=== PATIENT | male | born 1985 | race Caucasian/White ===

== ENCOUNTER 2018-08-29 21:16 | Observation (INO) | payer SELFPAY ==
[~2018-08-29] VITALS: Ht 172.7 cm; Wt 78.9 kg
[~2018-08-29 21:16] MED LIST: CIPR-214 PO; LOR5/325 PO; SULF-198 PO; TRAM-420 PO
--- NOTE | 2018-08-29 21:20 | ER Report ---
History and Physical Time Seen By MD: 21:20 HPI/ROS CHIEF COMPLAINT: Right upper quadrant abdominal pain, vomiting HISTORY OF PRESENT ILLNESS: 32-year-old male presents with severe severe right upper quadrant abdominal discomfort with vomiting. Patient ate soup shrimp in prior to the onset of symptoms earlier this evening. Patient states his pain started before this. He points to the right upper quadrant and right flank. Patient is [place]ic-speaking only history is obtained through an translator and interpreter. Patient notes no dysuria or hematuria. REVIEW OF SYSTEMS: Respiratory: No cough, no dyspnea. Cardiovascular: No chest pain, no palpitations. Gastrointestinal: As above Musculoskeletal: No back pain. Allergies: Coded Allergies: No Known Drug Allergies (Verified , 08/29/18) Home Meds Active Scripts Hydrocodone Bit/Acetaminophen (HYDROCODON-ACETAMINOPHEN 5-325) 1 Each Tablet, 1 EACH PO Q4-6H PRN for PAIN, #12 TAB Prov:LES OBRIEN DO 08/29/18 Promethazine Hcl (PROMETHAZINE HCL) 25 Mg Tablet, 25 MG PO Q4H PRN for NAUSEA/VOMITING, #14 TAB Prov:LES OBRIEN DO 08/29/18 Reported Medications Hydrocodone Bit/Acetaminophen (NORCO 5-325 TABLET) 1 Each Tablet, 1-2 EACH PO Q6H PRN for PAIN, TAB 08/30/18 Discontinued Scripts Tramadol Hcl (TRAMADOL HCL) 50 Mg Tablet, 50 MG PO Q6H PRN for PAIN, #12 TAB 0 Refills Prov:CECI SPAULDING DO 01/13/18 Sulfamethoxazole/Trimet 800-160 Mg Tab (BACTRIM DS TABLET) 1 Each Tablet, 1 TAB PO Q12H for 7 Days, #14 TAB Prov:CECI SPAULDING DO 01/13/18 Past Medical/Surgical History Perirectal abscess Reviewed Nurses Notes: Yes Old Medical Records Reviewed: Yes Hx Smoking: No Smoking Status: Never Smoker Exposure to Second Hand Smoke?: No Hx Substance Use Disorder: No Constitutional Vital Sign - Last 24 Hours 08/29/18 08/29/18 08/29/18 08/29/18 21:21 21:21 21:31 21:46 Temp 97.7 Pulse 64 59 61 Resp 28 B/P (MAP) 153/79 153/79 (103) Pulse Ox 100 99 100 O2 Delivery Room Air 08/29/18 08/29/18 08/29/18 08/29/18 22:01 22:16 22:31 22:33 Pulse 60 65 69 B/P (MAP) 142/70 (94) Pulse Ox 100 100 99 08/29/18 08/29/18 08/29/18 08/29/18 22:46 23:00 23:15 23:30 Pulse 69 70 79 B/P (MAP) 149/105 (120) 137/95 (109) Pulse Ox 100 100 99 99 08/30/18 08/30/18 08/30/18 00:00 00:30 00:45 Pulse 62 B/P (MAP) 128/90 (103) 131/99 (110) Pulse Ox 99 Physical Exam General Appearance: The patient is alert, has no immediate need for airway protection and no current signs of toxicity. Moderate distress, holding right upper quadrant, slightly pale, skin warm and dry HEENT: Pupils equal and round no injection. TMs normal, oropharynx without redness or exudate Respiratory: Chest is non tender, lungs are clear to auscultation. Cardiac: regular rate and rhythm Gastrointestinal: Abdomen is soft, mild right upper quadrant tenderness, no masses, bowel sounds normal. Musculoskeletal: Neck: Neck is supple and non tender. Extremities have full range of motion and are non tender. Skin: No rashes or lesions. DIFFERENTIAL DIAGNOSIS: After history and physical exam differential diagnosis was considered for abdominal pain including but not limited to appendicitis, cholecystitis, food poisoning, gastroenteritis, viral syndrome gastritis and urinary tract infection. Medical Decision Making Data Points Result Diagram: 08/29/18212608/29/182126 Laboratory Hematology Test 08/29/18 21:20 08/29/18 21:27 Urine Color Yellow Urine Clarity Clear Urine pH 5.0 pH (4.8-9.5) Urine Specific Clifford 1.018 Urine Protein Negative mg/dL (NEGATIVE) Urine Glucose (UA) Negative mg/dL (NEGATIVE) Urine Ketones Negative mg/dL (NEGATIVE) Urine Blood Negative (NEGATIVE) Urine Nitrite Negative (NEGATIVE) Urine Bilirubin Negative (NEGATIVE) Urine Urobilinogen Negative mg/dL (0.2-1.9) Urine Leukocyte Esterase Negative (NEGATIVE) Urine RBC None /HPF (0-2/HPF) Urine WBC <1 /HPF (0-5/HPF) Urine Squamous Epithelial Cells None /LPF (</=FEW) Urine Bacteria Negative /HPF (NONE-FEW) Urine Mucus None /HPF (NONE-FEW) Red Blood Count 5.22 M/uL (4.00-5.60) Mean Corpuscular Volume 94.6 fL (80.0-96.0) Mean Corpuscular Hemoglobin 32.0 pg (26.0-33.0) Mean Corpuscular Hemoglobin Concent 33.8 g/dL (32.0-36.0) Red Cell Distribution Width 12.7 % (11.5-14.5) Mean Platelet Volume 7.8 fL (7.2-11.1) Neutrophils (%) (Auto) 66.6 % (39.4-72.5) Lymphocytes (%) (Auto) 24.9 % (17.6-49.6) Monocytes (%) (Auto) 6.6 % (4.1-12.4) Eosinophils (%) (Auto) 1.1 % (0.4-6.7) Basophils (%) (Auto) 0.8 % (0.3-1.4) Nucleated RBC Relative Count (auto) 0.0 /100WBC Neutrophils # (Auto) 7.5 K/uL (2.0-7.4) Lymphocytes # (Auto) 2.8 K/uL (1.3-3.6) Monocytes # (Auto) 0.7 K/uL (0.3-1.0) Eosinophils # (Auto) 0.1 K/uL (0.0-0.5) Basophils # (Auto) 0.1 K/uL (0.0-0.1) Nucleated RBC Absolute Count (auto) 0.00 K/uL Sodium Level 141 mmol/L (137-145) Potassium Level 3.1 mmol/L (3.5-5.0) Chloride Level 103 mmol/L (98-107) Carbon Dioxide Level 22 mmol/L (22-30) Blood Urea Nitrogen 12 mg/dl (9-21) Creatinine 0.80 mg/dl (0.66-1.25) Glomerular Filtration Rate Calc > 60.0 Random Glucose 143 mg/dl (75-110) Calcium Level 10.0 mg/dl (8.4-10.2) Total Bilirubin 0.6 mg/dl (0.2-1.3) Aspartate Amino Transf (AST/SGOT) 37 U/L (0-35) Alanine Aminotransferase (ALT/SGPT) 17 U/L (0-56) Alkaline Phosphatase 89 U/L (0-126) Total Protein 8.6 g/dl (6.3-8.2) Albumin 5.2 g/dl (3.5-5.0) Amylase Level 111 U/L (0-110) Lipase 101 U/L (23-300) Chemistry Test 08/29/18 21:20 08/29/18 21:27 Urine Color Yellow Urine Clarity Clear Urine pH 5.0 pH (4.8-9.5) Urine Specific Clifford 1.018 Urine Protein Negative mg/dL (NEGATIVE) Urine Glucose (UA) Negative mg/dL (NEGATIVE) Urine Ketones Negative mg/dL (NEGATIVE) Urine Blood Negative (NEGATIVE) Urine Nitrite Negative (NEGATIVE) Urine Bilirubin Negative (NEGATIVE) Urine Urobilinogen Negative mg/dL (0.2-1.9) Urine Leukocyte Esterase Negative (NEGATIVE) Urine RBC None /HPF (0-2/HPF) Urine WBC <1 /HPF (0-5/HPF) Urine Squamous Epithelial Cells None /LPF (</=FEW) Urine Bacteria Negative /HPF (NONE-FEW) Urine Mucus None /HPF (NONE-FEW) White Blood Count 11.3 k/uL (4.5-11.0) Red Blood Count 5.22 M/uL (4.00-5.60) Hemoglobin 16.7 g/dL (14.0-18.0) Hematocrit 49.4 % (42.0-52.0) Mean Corpuscular Volume 94.6 fL (80.0-96.0) Mean Corpuscular Hemoglobin 32.0 pg (26.0-33.0) Mean Corpuscular Hemoglobin Concent 33.8 g/dL (32.0-36.0) Red Cell Distribution Width 12.7 % (11.5-14.5) Platelet Count 326 K/uL (150-450) Mean Platelet Volume 7.8 fL (7.2-11.1) Neutrophils (%) (Auto) 66.6 % (39.4-72.5) Lymphocytes (%) (Auto) 24.9 % (17.6-49.6) Monocytes (%) (Auto) 6.6 % (4.1-12.4) Eosinophils (%) (Auto) 1.1 % (0.4-6.7) Basophils (%) (Auto) 0.8 % (0.3-1.4) Nucleated RBC Relative Count (auto) 0.0 /100WBC Neutrophils # (Auto) 7.5 K/uL (2.0-7.4) Lymphocytes # (Auto) 2.8 K/uL (1.3-3.6) Monocytes # (Auto) 0.7 K/uL (0.3-1.0) Eosinophils # (Auto) 0.1 K/uL (0.0-0.5) Basophils # (Auto) 0.1 K/uL (0.0-0.1) Nucleated RBC Absolute Count (auto) 0.00 K/uL Glomerular Filtration Rate Calc > 60.0 Calcium Level 10.0 mg/dl (8.4-10.2) Total Bilirubin 0.6 mg/dl (0.2-1.3) Aspartate Amino Transf (AST/SGOT) 37 U/L (0-35) Alanine Aminotransferase (ALT/SGPT) 17 U/L (0-56) Alkaline Phosphatase 89 U/L (0-126) Total Protein 8.6 g/dl (6.3-8.2) Albumin 5.2 g/dl (3.5-5.0) Amylase Level 111 U/L (0-110) Lipase 101 U/L (23-300) Urinalysis Test 08/29/18 21:20 Urine Color Yellow Urine Clarity Clear Urine pH 5.0 pH (4.8-9.5) Urine Specific Clifford 1.018 Urine Protein Negative mg/dL (NEGATIVE) Urine Glucose (UA) Negative mg/dL (NEGATIVE) Urine Ketones Negative mg/dL (NEGATIVE) Urine Blood Negative (NEGATIVE) Urine Nitrite Negative (NEGATIVE) Urine Bilirubin Negative (NEGATIVE) Urine Urobilinogen Negative mg/dL (0.2-1.9) Urine Leukocyte Esterase Negative (NEGATIVE) Urine RBC None /HPF (0-2/HPF) Urine WBC <1 /HPF (0-5/HPF) Urine Squamous Epithelial Cells None /LPF (</=FEW) Urine Bacteria Negative /HPF (NONE-FEW) Urine Mucus None /HPF (NONE-FEW) EKG/Imaging Imaging Results: CT scan of the abdomen and pelvis with IV contrast was obtained. The results of the study are ADDENDUM #1 ADDENDUM: Due to patient motion, patient was brought back for repeat imaging to better evaluate the appendix. Despite repeating images, there is still mild motion. There is a small fat-containing umbilical hernia. The appendix is enlarged, measuring 8 mm in cross-section. There is subtle attenuation of the fat at the tip of the appendix, best appreciated on sagittal images 34 series 5, potentially subtle inflammation. Findings are not diagnostic but raise concern for acute appendicitis. Surgical consult is recommended. Report Dictated By: Adry Pillai at 08/29/2018 11:58 PM Report E-Signed By: Adry Pillai at 08/30/2018 12:[address] ABDOMEN PELVIS W/ CON HISTORY: Severe right upper quadrant pain. COMPARISON: None. TECHNIQUE: Axial images were obtained from the lung bases through the symphysis pubis with intravenous contrast. Sagittal and coronal reformats were performed. One of the following dose optimization techniques was utilized in the performance of this exam: Automated exposure control; adjustment of the mA and/or kV according to the patient's size; or use of an iterative reconstruction technique. Specific details can be referenced in the facility's radiology CT exam operational policy. CONTRAST: 75 mL IV [id number]. FINDINGS: There is respiratory motion artifact. Lower chest: There is minimal atelectasis. Liver: Liver is diffusely decreased in attenuation, compatible with hepatic steatosis. Gallbladder/biliary: Normal. Pancreas: Normal. Spleen: Normal. Adrenals: Normal. Kidneys/ureters/bladder: Normal. GI/mesentery/peritoneal cavity: There is no bowel obstruction. There is no wall thickening or pericolonic stranding. Due to respiratory motion artifact, difficult to well evaluate the appendix. It is appears mildly enlarged. No free air or free fluid. Vessels: No atherosclerotic disease. No aneurysm. No dissection. Nodes: Normal. Pelvis: There are phleboliths. Bones/vertebra/soft tissues: There is mild degenerative disc disease, greatest at L5-S1. IMPRESSION: 1. Examination is limited due to patient respiratory motion artifact. The appendix appears enlarged. Because of respiratory motion, it is difficult to evaluate for any surrounding inflammation. As clinically indicated, images could be repeated from the level of the top of L3-S1 to try to better evaluate the appendix. These findings were discussed by phone with LES OBRIEN on 08/29/2018 11:30 PM. The study was read by the radiologist. I viewed the images myself on the PACS system. ED Course/Re-evaluation Clinical Indication for ER IV: Hydration, IV Access ED Course Patient was admitted to an examination room. H&P was done. The differential diagnoses was considered. Patient with severe right abdominal pain. Patient required significant pain medicine to control his pain. His diagnostic studies were unremarkable. His pain persisted as well as tenderness in his abdomen, both right upper and right lower quadrant. A CT scan of the abdomen and pelvis was performed which showed findings suggesting acute appendicitis. Case was discussed with general surgery on-call. Holding orders were written for the patient to be cared for until morning at which time the patient be taken for surgery for a laparoscopic appendectomy. 08/30/2018 12:27:23 am case discussed with Dr. Moe general surgery on-call, who requested patient be admitted for a.m. surgery Decision to Disposition Date: Aug 29, 2018 Decision to Disposition Time: 22:24 Depart Departure Latest Vital Signs Vital Signs Date Time Temp Pulse Resp B/P (MAP) Pulse Ox O2 Delivery O2 Flow Rate FiO2 08/30/18 00:45 62 99 08/30/18 00:30 131/99 (110) 08/29/18 21:21 97.7 28 Room Air Impression: Primary Impression: Acute appendicitis Condition: Improved Disposition: HOME OR SELF-CARE Referrals: LONNIE RASMUSSEN MD New Scripts Hydrocodone Bit/Acetaminophen (HYDROCODON-ACETAMINOPHEN 5-325) 1 Each Tablet 1 EACH PO Q4-6H PRN for PAIN, #12 TAB Prov: LES OBRIEN DO 08/29/18 Promethazine Hcl (PROMETHAZINE HCL) 25 Mg Tablet 25 MG PO Q4H PRN for NAUSEA/VOMITING, #14 TAB Prov: LES OBRIEN DO 08/29/18 Additional Instructions: Follow clear liquid diet for 24-48 hours, then advance to the brat diet, bananas, rice, applesauce and toast Take Prilosec 20 mg per day to reduce your stomach acid by 90% Follow-up with primary care if unimproved in 3-5 days Problem Qualifiers Primary Impression: Acute appendicitis Acute appendicitis type: with localized peritonitis Appendicitis gangrene presence: without gangrene Appendicitis perforation presence: without perforation Appendicitis abscess presence: without abscess Qualified Codes: K35.30 - Acute appendicitis with localized peritonitis, without perforation or gangrene LES OBRIEN DO Aug 29, 2018 21:20
[2018-08-29] MEDS ORDERED: NS(*) 0.9% 1000 ML BAG 1,000 ML IV ONE (21:24)
[2018-08-29] MEDS ORDERED: fentaNYL CITR 100 MCG/2 ML AMP IVP ONE (21:25)
[2018-08-29] MEDS ORDERED: ONDANSETRON 4 MG/2 ML VIAL IVP ONE (21:25)
[2018-08-29 21:41] LABS: PLATELET COUNT, AUTOMATED 326 K/uL (150-450)
[2018-08-29] MEDS ORDERED: PROMETHAZINE 25 MG/ML 1 ML AMP IVP ONE (21:50)
[2018-08-29] MEDS ORDERED: HYDROMORPHONE HCL 1 MG/ML SYRINGE IVP ONE ×2 (21:50→22:35)
[2018-08-29] MEDS ORDERED: PROM-110 PO (22:26)
[2018-08-29] MEDS ORDERED: LOR5/325 PO (22:26)
[2018-08-29] MEDS ORDERED: PROMETHAZINE HCL 25 MG TAB TH 2 TAB/BOTTLE PO ONE (22:35)
[2018-08-29] MEDS ORDERED: ACET/HYDROC 5/325MG TH ER ONLY 2 TAB/BOTTLE PO ONE (22:35)
[2018-08-29] MEDS ORDERED: IOPAMIDOL 76% 150 ML INFUS BTL 150 ML ONE (22:48)
--- NOTE | 2018-08-29 23:33 | RADIOLOGY IMAGING REPORT ---
FACILITY: [facility] [place] PATIENT NAME: Rogelio Baca : 1985 MR: [id number] V: [id number] EXAM DATE: ORDERING PHYSICIAN: LES OBRIEN TECHNOLOGIST: Location: [facility] Patient: Rogelio Baca : 1985 Visit/Account:[id number] Date of Sevice: 08/29/2018 ADDENDUM #1 ADDENDUM: Due to patient motion, patient was brought back for repeat imaging to better evaluate the appendix. D espite repeating images, there is still mild motion. There is a small fat-containing umbilical hernia . The appendix is enlarged, measuring 8 mm in cross-section. There is subtle attenuation of the fat at the tip of the appendix, best appreciated on sagittal images 34 series 5, potentially subtle inflamma tion. Findings are not diagnostic but raise concern for acute appendicitis. Surgical consult is recom mended. Report Dictated By: Adry Pillai at 08/29/2018 11:58 PM Report E-Signed By: Adry Pillai at 08/30/2018 12:[address] ABDOMEN PELVIS W/ CON HISTORY: Severe right upper quadrant pain. COMPARISON: None. TECHNIQUE: Axial images were obtained from the lung bases through the symphysis pubis with intravenou s contrast. Sagittal and coronal reformats were performed. One of the following dose optimization techniques was utilized in the performance of this exam: Autom ated exposure control; adjustment of the mA and/or kV according to the patient's size; or use of an i terative reconstruction technique. Specific details can be referenced in the facility's radiology CT exam operational policy. CONTRAST: 75 mL IV [id number]. FINDINGS: There is respiratory motion artifact. Lower chest: There is minimal atelectasis. Liver: Liver is diffusely decreased in attenuation, compatible with hepatic steatosis. Gallbladder/biliary: Normal. Pancreas: Normal. Spleen: Normal. Adrenals: Normal. Kidneys/ureters/bladder: Normal. GI/mesentery/peritoneal cavity: There is no bowel obstruction. There is no wall thickening or pericol onic stranding. Due to respiratory motion artifact, difficult to well evaluate the appendix. It is ap pears mildly enlarged. No free air or free fluid. Vessels: No atherosclerotic disease. No aneurysm. No dissection. Nodes: Normal. Pelvis: There are phleboliths. Bones/vertebra/soft tissues: There is mild degenerative disc disease, greatest at L5-S1. IMPRESSION: 1. Examination is limited due to patient respiratory motion artifact. The appendix appears enlarged. Because of respiratory motion, it is difficult to evaluate for any surrounding inflammation. As clini rula indicated, images could be repeated from the level of the top of L3-S1 to try to better evaluat e the appendix. These findings were discussed by phone with LES OBRIEN on 08/29/2018 11:30 PM. Report Dictated By: Adry Pillai at 08/29/2018 11:12 PM Report E-Signed By: Adry Pillai at 08/29/2018 11:29 PM WSN:[id number]
[2018-08-30] VITALS (14 sets, daily range): BP systolic 112–141; BP diastolic 62–93; Ht 172.7 cm; Wt 78.9 kg
[2018-08-30] MEDS ORDERED: PIPERACILLIN/TAZO*3.375GM VIAL 3.375 GM in NS(*) 0.9% 100 ML ADDVANT BAG 100 ML IVPB SCH ×2 (00:30→06:00)
[2018-08-30] MEDS ORDERED: LR(*) 1000 ML BAG 1,000 ML IV PRN (01:55)
[2018-08-30] MEDS ORDERED: LR(*) 1000 ML BAG 1,000 ML ONE (01:56)
[2018-08-30] MEDS ORDERED: ONDANSETRON 4 MG/2 ML VIAL IVP PRN ×2 (02:00→09:40)
[2018-08-30] MEDS ORDERED: MORPHINE 4 MG/ML SDV IVP PRN (02:00)
[2018-08-30] MEDS ORDERED: PIPERACILLIN/TAZO*3.375GM VIAL 3.375 GM ONE (03:42)
[2018-08-30] MEDS ORDERED: NS(*) 0.9% 100 ML BAG 100 ML ONE (03:43)
[2018-08-30] MEDS ORDERED: FAMOTIDINE(*) 20MG/50ML PREMIX 50 ML IVPB ONE (07:20)
[2018-08-30] MEDS ORDERED: NORMOSOL R SOLN(*) 1000 ML BAG 1,000 ML IV ONE ×2 (07:20→09:19)
[2018-08-30] MEDS ORDERED: fentaNYL CITR 100 MCG/2 ML AMP ONE (07:30)
[2018-08-30] MEDS ORDERED: ONDANSETRON 4 MG/2 ML VIAL ONE (07:30)
[2018-08-30] MEDS ORDERED: DEXAMETHASONE SOD PHOS 10MG/ML ONE (07:30)
[2018-08-30] MEDS ORDERED: KETAMINE HCL-NS 50 MG/5 ML SYR ONE (07:30)
[2018-08-30] MEDS ORDERED: PROPOFOL EMUL(*) 10MG/ML 20 ML 20 ML ONE (07:30)
[2018-08-30] MEDS ORDERED: ROCURONIUM BROM 10 MG/ML 10 ML ONE (07:32)
[2018-08-30] MEDS ORDERED: ROPIVACAINE 0.5% 20 ML VIAL ONE (07:32)
[2018-08-30] MEDS ORDERED: BUPIV/EPI 0.25% 1:200,000 50ML INFIL ONE (07:32)
[2018-08-30] MEDS ORDERED: ROPIVACAINE 0.2% 20 ML VIAL ONE (07:33)
[2018-08-30] MEDS ORDERED: ROCURONIUM BROM 10 MG/ML 5 ML ONE (08:06)
[2018-08-30] MEDS ORDERED: LIDOCAINE MPF 1% 5 ML VIAL ONE (08:06)
[2018-08-30] MEDS ORDERED: KETOROLAC 30 MG/ML VIAL ONE (08:54)
[2018-08-30] MEDS ORDERED: SUGAMMADEX SOD 200 MG/2 ML SDV ONE (08:54)
[2018-08-30] MEDS ORDERED: KCL/D1/2NS 20 MEQ 1000 ML 1,000 ML IV PRN (09:40)
[2018-08-30] MEDS ORDERED: MORPHINE 2 MG/ML SYR IVP PRN (09:40)
[2018-08-30] MEDS ORDERED: APAP/HYDROCODONE 325/5 TAB PO PRN (09:40)
[2018-08-30] MEDS ORDERED: HYDR-653 PO (14:58)
== END 2018-08-30 14:52 | disposition home or self-care (01) ==
LOC: ER 21:26 → MED 08-30 00:50
PROVIDERS: ADMIT Surgery; ATTEND Surgery
DX: K35.30 Acute appendicitis with localized peritonitis, without perforation or gangrene (principal)
CPT/HCPCS: 44970; 74177; 81001; 82150; 83690; 85025; 88304; 96365; 96375; 99284; G0378; J1100; J1170; J1885; J2001; J2270; J2405; J2543; J2550; J2704; J3010; J3490; J7030; J7050; J7120; Q9967; 82040; 82247; 82310; 82374; 82435; 82565; 82947; 84075; 84132; 84155; 84295; 84450; 84460; 84520; J2795